=== PATIENT | female | born 1950 | race Caucasian/White ===

== ENCOUNTER → 2018-09-03 | Outpatient (CLI) | payer MEDICARE, BC ==
[~2018-09-03] MED LIST: CEFAZOLIN IV; Ecotrin325 MG PO; NKHM; PERCOCET 500 MG1 TAB PO
[2018-09-03 10:35] LABS: BASO % 0.4 % (0.0-1.0); EOS # 0.1 10*3/uL (0.0-0.4); HEMATOCRIT 38.8 % (37.0-47.0); HEMOGLOBIN 12.6 g/dl (12.0-16.0); LYMPH # 1.8 10*3/uL (1.3-4.4); LYMPH % 36.3 % (27.0-41.0); MEAN CELL VOLUME 90.4 fl (81.0-99.0); MEAN CORPUSCULAR HGB 29.4 pg (27.0-31.0); MEAN CORPUSCULAR HGB CONC 32.5 g/dl (33.0-37.0); MEAN PLATELET VOLUME 9.8 fl (9.6-12.3); MONO # 0.3 10*3/uL (0.1-1.0); MONO % 6.2 % (3.0-9.0); NEUT # 2.7 10*3/uL (2.3-7.9); NEUT % 55.7 % (47.0-73.0); PLATELET COUNT AUTOMATED 185 10*3/uL (130-400); RED BLOOD COUNT 4.29 10*6/uL (4.10-5.10); RED CELL DISTRI WIDTH 14.3 % (0-14.5); WHITE BLOOD COUNT 4.9 10*3/uL (4.8-10.8)
[2018-09-03 11:04] LABS: BUN 15 mg/dl (7-24); CHLORIDE 107 mmol/L (98-107); CHOLESTEROL 191 mg/dL (<200); CREATININE 0.72 mg/dL (0.55-1.02); FREE T4 0.81 ng/dl (0.76-1.46); HDL CHOLESTEROL 54 mg/dl (40-60); LDL CHOLESTEROL 118 mg/dL (9-159); SGPT/ALT 18 U/L (12-78); SODIUM 140 mmol/L (136-145); TRIGLYCERIDES 94 mg/dl (<150); VLDL CHOLESTEROL 19 mg/dL (6-40)
== END | disposition home or self-care (01) ==
LOC: LAB 09:47
PROVIDERS: Internal Medicine Endocrinology, Diabetes & Metabolism
DX: E03.8 Other specified hypothyroidism (principal); E55.9 Vitamin D deficiency, unspecified; E04.9 Nontoxic goiter, unspecified; M81.8 Other osteoporosis without current pathological fracture

== ENCOUNTER → 2020-06-16 | Outpatient (CLI) | payer MEDICARE, BC ==
[2020-06-16 13:15] LABS: BASO % 0.4 % (0.0-1.0); EOS % 0.4 % (1.0-4.0); HEMATOCRIT 39.5 % (37.0-47.0); LYMPH # 1.6 10*3/uL (1.3-4.4); LYMPH % 34.5 % (27.0-41.0); MEAN CORPUSCULAR HGB 28.6 pg (27.0-31.0); MEAN CORPUSCULAR HGB CONC 31.4 g/dl (33.0-37.0); MONO # 0.3 10*3/uL (0.1-1.0); MONO % 6.9 % (3.0-9.0); NEUT # 2.7 10*3/uL (2.3-7.9); NEUT % 57.6 % (47.0-73.0); PLATELET COUNT AUTOMATED 176 10*3/uL (130-400); RED BLOOD COUNT 4.34 10*6/uL (4.10-5.10); RED CELL DISTRI WIDTH 14.2 % (0-14.5); RETICULOCYTE % 1.11 % (0.50-2.50); WHITE BLOOD COUNT 4.7 10*3/uL (4.8-10.8)
[2020-06-16 13:51] LABS: ALKALINE PHOSPHATASE 62 U/L (45-117); BUN 11 mg/dl (7-24); CHLORIDE 109 mmol/L (98-107); CHOLESTEROL 200 mg/dL (<200); CREATININE 0.79 mg/dL (0.55-1.02); GAMMA GLUTAMYL TRANSPEPTIDASE 14 U/L (5-55); HDL CHOLESTEROL 54 mg/dl (40-60); IRON 88 ug/dL (50-170); LDL CHOLESTEROL 130 mg/dL (9-159); POTASSIUM 3.7 mmol/L (3.5-5.1); SGOT/AST 18 IU/L (3-35); SGPT/ALT 24 U/L (12-78); SODIUM 142 mmol/L (136-145); T3 UPTAKE 33 % (31-39); THYROXINE (T4) TOTAL 10.1 ug/dl (4.8-13.9); TOTAL IRON BINDING CAPACITY 335 ug/dl (250-450); TOTAL PROTEIN 7.4 gm/dL (6.4-8.2); TRIGLYCERIDES 80 mg/dl (<150); VLDL CHOLESTEROL 16 mg/dL (6-40)
[2020-06-16 13:51] LABS: CLARITY CLEAR (CLEAR); COLOR YELLOW (YELLOW)
[2020-06-16 13:52] LABS: BILIRUBIN NEGATIVE; BLOOD NEGATIVE (NEGATIVE); GLUCOSE NEGATIVE; KETONE TRACE; LEUKO ESTERASE NEGATIVE (NEGATIVE); NITRITE NEGATIVE (NEGATIVE); UROBILINOGEN 0.2 E.U./dl (0.0-1.0)
[2020-06-16 13:53] LABS: BACTERIA 1+; MUCOUS 2+
[2020-06-16 13:57] LABS: FERRITIN 18.5 ng/mL (10.0-291.0); VITAMIN D, 25-HYDROXY 52.7 ng/mL (30-100)
== END | disposition home or self-care (01) ==
LOC: LAB 12:22
PROVIDERS: ATTEND Family Medicine
DX: R79.89 Other specified abnormal findings of blood chemistry (principal); E55.9 Vitamin D deficiency, unspecified; E04.9 Nontoxic goiter, unspecified; E78.00 Pure hypercholesterolemia, unspecified

== ENCOUNTER → 2022-06-29 | Outpatient (CLI) | payer MEDICARE | END | disposition home or self-care (01) | LOC: CARD 06-14 08:30 | PROVIDERS: ATTEND Internal Medicine Cardiovascular Disease | DX: I27.20 Pulmonary hypertension, unspecified (principal); R06.09 Other forms of dyspnea ==

== ENCOUNTER → 2023-08-02 | Outpatient (CLI) | payer MEDICARE | END | disposition home or self-care (01) | LOC: CP 01:52 | PROVIDERS: ATTEND Nurse Practitioner Family | DX: E78.5 Hyperlipidemia, unspecified (principal); Z13.820 Encounter for screening for osteoporosis; R06.02 Shortness of breath; E03.9 Hypothyroidism, unspecified; Z00.00 Encounter for general adult medical examination without abnormal findings ==

== ENCOUNTER → 2024-06-24 | Outpatient (CLI) | payer MEDICARE ==
[2024-06-24 17:06] LABS: BILIRUBIN Negative (Negative); BLOOD Negative (Negative); CLARITY Clear (Clear); COLOR Yellow (Yellow); GLUCOSE Negative (Negative); KETONE Negative (Negative); LEUKO ESTERASE Negative (Negative); NITRITE Negative (Negative); SPECIFIC GRAVITY 1.015 (1.001-1.030)
[2024-06-24 17:15] LABS: HYALINE CAST 0-2; RBC 0-2 rbc/hpf (0-2)
== END | disposition home or self-care (01) ==
LOC: LAB 14:51
PROVIDERS: ATTEND Nurse Practitioner Family
DX: M25.551 Pain in right hip (principal); Z80.51 Family history of malignant neoplasm of kidney

== ENCOUNTER → 2025-05-28 | Outpatient (CLI) | payer MEDICARE ==
[2025-05-28 15:56] LABS: BASO # 0.0 10*3/uL (0.0-0.1); BASO % 0.3 % (0.0-1.0); EOS # 0.1 10*3/uL (0.0-0.4); EOS % 0.9 % (1.0-4.0); MEAN CELL VOLUME 91.1 fl (81.0-99.0); MEAN CORPUSCULAR HGB 28.9 pg (27.0-31.0); MEAN PLATELET VOLUME 9.7 fl (9.6-12.3); MONO # 0.4 10*3/uL (0.1-1.0); MONO % 6.1 % (3.0-9.0); NEUT # 3.7 10*3/uL (2.3-7.9); NEUT % 64.1 % (47.0-73.0); NUCLEATED RED BLOOD CELL 0.0 % (0.0-0.0); NUCLEATED RED BLOOD CELL 0.0 10*3/uL (0.0-0.0); PLATELET COUNT AUTOMATED 193 10*3/uL (130-400); RED CELL DISTRI WIDTH 14.0 % (0-14.5)
== END | disposition home or self-care (01) ==
LOC: LAB 15:37
PROVIDERS: ATTEND Orthopaedic Surgery
DX: R53.83 Other fatigue (principal)